=== PATIENT | female | born 1985 | race African-American/Black ===

== ENCOUNTER 2018-09-19 09:05 | Emergency (ER) | payer SELFPAY ==
[2018-09-19] MEDS ORDERED: Ciprofloxacin 500 MG TAB ONE (10:07)
== END 2018-09-19 10:31 | disposition home or self-care (01) ==
LOC: ERS 09:05
DX: Z77.21 Contact with and (suspected) exposure to potentially hazardous body fluids (principal); J45.909 Unspecified asthma, uncomplicated
CPT/HCPCS: 99283

== ENCOUNTER 2021-10-27 08:49 | Outpatient (CLI) | payer OTHER, MEDICAID | END 2021-10-27 08:50 | disposition home or self-care (01) | LOC: BICULT 08:49 | PROVIDERS: ATTEND Nurse Practitioner Women's Health | DX: R10.2 Pelvic and perineal pain (principal) | CPT/HCPCS: 76856 ==